=== PATIENT | male | born 1960 | race Caucasian/White ===

== ENCOUNTER 2016-10-12 06:12 | Day surgery (SDC) | payer BC ==
[~2016-10-12] VITALS: Ht 185.4 cm; Wt 116.3 kg
--- NOTE | 2016-10-13 05:22 | OR ---
ADMIT: 10/12/2016 RM/LOC: [facility] MR#: [id number] [address] KEVINSHRUTHI BISWAS [address] [place] [address] Operative/Delivery Room Report SEX: M AGE: 56 : 1960 SURGERY DATE: 10/12/2016 SURGEON: Teo Frey MD PROCEDURE: Total colonoscopy with hot biopsy polypectomy. PREOPERATIVE DIAGNOSIS: Colon polyps. POSTOPERATIVE DIAGNOSIS: Transverse colon polyp. PROCEDURE IN DETAIL: The patient was brought to procedure room, placed in left lateral decubitus position. Informed consent had been obtained preoperatively. The risks and benefits including, but not limited to perforation, sedation, and bleeding were discussed with the patient and agreed upon. All questions were answered, alternatives discussed, and the patient agreed. Monitored anesthesia care was provided by Dustin Pelayo CRNA with propofol and Alfenta. Anal inspection digital examination revealed a mildly enlarged prostate without nodularity or change in texture with no obstructing masses. The Olympus videoendoscope, model CF-H180AL was introduced to the rectum and advanced to cecum without difficulty. The appendiceal orifice and ileocecal valve were identified. The scope was slowly withdrawn through a normal cecum and ascending colon. Particular attention was paid to the ascending colon where previously an adenomatous polyp was removed. This area was completely normal. In the mid transverse colon, there was an adenomatous polyp that was grasped with the hot biopsy forceps, cauterized, and retrieved. The remainder of the transverse, descending, sigmoid, and rectum were normal. Scope was retroflexed. The anal verge appeared normal. The patient tolerated the procedure well. No complications were expected. Blood loss was less than 1 mL. He will call me in 1 week for his biopsy report, sooner if he should have any postoperative problems. Recommend he have repeat colonoscopy in 5 years due to his history of adenomatous colon polyps, sooner if he should have any signs or symptoms in the interval. Teo Frey MD/ rd JOB #: [id number] CC: Teo Frey, Attending Physician Biju Nogueira, Family Physician
== END 2016-10-12 09:22 | disposition home or self-care (01) ==
LOC: SSS
PROC: 0DBL8ZX Excision of Transverse Colon, Via Natural or Artificial Opening Endoscopic, Diagnostic (ICD-10-PCS; principal; 2016-10-12)
DX: D12.3 Benign neoplasm of transverse colon (principal); I10 Essential (primary) hypertension; E66.9 Obesity, unspecified; Z79.899 Other long term (current) drug therapy; Z98.890 Other specified postprocedural states

== ENCOUNTER → 2016-10-23 | Outpatient (CLI) | payer BC ==
--- NOTE | 2016-10-27 16:11 | SS ---
ADMIT: 10/23/2016 RM/LOC: [facility] MR#: [id number] [address] [address] SAIDASANDY SHRUTHI Gustavo [address] [place] [address] Sleep Study SEX: M AGE: 56 : 1960 STUDY DATE: 10/23/2016 CLINICAL HISTORY: A 56-year-old male, body mass of 31.873 inches, 240 pounds, who is in the sleep lab for symptoms of fatigue, poor energy and for evaluation of obstructive sleep apnea. TECHNICAL DESCRIPTION: Split night polysomnogram performed on night of 10/23/2016, attended by trained cardiac cath lab radiology technologist. DIAGNOSTIC POLYSOMNOGRAM FINDINGS: SLEEP: Total time in bed, 171 minute. Total sleep time 41 minutes. Sleep efficiency 82.5%, 77.6% hours spent in stage II sleep, 15.2% hours spent in stage REM. BREATHING: Severe obstructive sleep apnea with apnea-hypopnea index of 42.1. During the study, there were 84 hypopneas and non-REM sleep and 15 hypopneas in REM sleep. OXYGEN SATURATION: Mean sleeping oxygen 90%. CARDIAC: Average heart rate of 59 beats per minute. MOVEMENT/POSITION: During the study, patient slept in supine lateral position with a periodic leg movement index of 57.4. CPAP TITRATION FINDINGS: TITRATION DESCRIPTION: Patient was titrated from 9 cm CPAP to 13 cm of CPAP. RESPIRONICS: Wisp large mask was used as interface. SLEEP: Total time in bed is 301.5 minutes, total sleep time 266.5 minutes, sleep efficiency 88.4%. 60% hours spent in stage II sleep, 30.9% hours spent in stage REM rebound. BREATHING: Excellent resolution of obstructive sleep apnea was seen on CPAP 13 cm. The patient was seen in REM sleep in supine position with complete resolution of obstructive events. ADMIT: 10/23/2016 RM/LOC: [facility] MR#: [id number] [address] SHRUTHI FORD [address] [place] [address] Sleep Study SEX: M AGE: 56 : 1960 OXYGEN SATURATION: Mean sleeping oxygen saturation is 93%. CARDIAC: Average heart rate of 50 beats per minute. MOVEMENT/POSITION: During the study, patient slept in the supine and lateral position with complete resolution of periodic leg movements of sleep. IMPRESSION/PLAN: Severe obstructive sleep apnea with apnea-hypopnea index of 42.1. Recommend using CPAP 13 cm, mask as mentioned above. Recommend losing weight, avoiding sedatives, alcohol. Refrain from driving if excessively sleepy. Clinical correlation needed. CPAP compliance followup is recommended. Ronnell East MD/ rd JOB #: [id number] CC: Biju Nogueira MD, Attending Physician Biju Nogueira MD, Family Physician
== END | disposition home or self-care (01) ==
LOC: RESC 19:52
DX: G47.33 Obstructive sleep apnea (adult) (pediatric) (principal); R53.83 Other fatigue